=== PATIENT | male | born 1995 | race Caucasian/White ===

== ENCOUNTER 2020-05-03 13:33 | Emergency (ER) | payer BC, SELFPAY ==
[2020-05-03 13:41] VITALS: BP 128/83; PULSE 118; RESP 18; O2SAT 98
--- NOTE | 2020-05-03 13:48 | ED.GENADUL_ITS ---
Discharge Plan Disposition Patient Disposition: HOME Condition: Stable Discharge Details Clinical Impression: Strain of thoracic back region Primary Care Provider: [place],Local ED Provider: Carina Lewis Home Meds and New Rx's Prescriptions: No Action No Known Home Meds RF: 0 Discharge Instructions Instructions: Muscle Strain (ED), Thoracic Back Strain (ED) Additional Instructions: Alternate ice and heat to the affected area(s) several times daily for 20 minutes at a time. Alternate tylenol and motrin as needed and directed for pain. You can also take [id number] Lidoderm patch as needed and directed for pain. Follow up with your primary care doctor in 1 week as needed. Return to the emergency department with any worsening or new concerning symptoms. Discharge Data Discharge Date/Time-TO BE ENTERED AT DEPARTURE: 05/03/20 15:25 Discharge Physician: Carina Lewis Medical Decision Making 25-year-old female presents with right lateral lower back pain for the past 2 weeks after lifting an approximate 400 pound piece of [place]. He presents with concern for pneumothorax as he had similar symptoms with a previous traumatic pneumothorax after a fall a few years ago. His vitals are within normal limits. He denies any complaint of shortness of breath. He has a localized area of tenderness to his right posterolateral inferior ribs. There is no evidence of trauma or cellulitis. His lungs are clear. Clinically appears more consistent likely with a muscle strain or spasm rather than pneumothorax. Will obtain a chest x-ray, give a dose of ibuprofen and place Lidoderm patch and reassess. Chest x-ray negative. Patient feels much better after meds. Given thoracic strain instructions. Advised on pain control. Advised to follow up with the primary care doctor for re-evaluation. Usual and customary return precautions given prior to discharge. Medical Records Medical records reviewed: Yes I reviewed the patient's medical records. Imaging Data Radiologic Study: Radiologist's impression: XR Chest, 2 Views Exam date and time: 05/03/2020 2:06 PM Age: 25 years old Clinical indication: Other: R lower scapular pain, h/o ptx, R/O ptx TECHNIQUE: Imaging protocol: XR of the chest Views: 2 views. COMPARISON: No relevant prior studies available. FINDINGS: Lungs: Nonspecific hyperinflation. No focal lung consolidation. No focal nodular features. Pleural space: No pleural effusion. No pneumothorax. Heart/Mediastinum: Unremarkable. No cardiomegaly. Bones/joints: Unremarkable. IMPRESSION: 1. Nonspecific hyperinflation. 2. No lung infiltrates or consolidation. 3. No pneumothorax or pleural fluid accumulation. HPI General Mode of arrival: ambulatory . Date/Time Provider Initiated Documentation: 05/03/20 13:39 . Limitations to Documentation: no limitations . Information obtained by: patient . HPI Narrative: Patient is a 25-year-old male with a history of traumatic pneumothorax due to a fall a few years ago presents with right lateral lower rib pain for the past 2 weeks after carrying a heavy piece of [place]. Patient states he was carrying an approximate 400 pound piece of [place] 2 weeks ago when a few hours later he developed right lateral lower rib and back pain. He states the pain hurts with movement and to touch and when taking a deep breath. He denies any complaint of shortness of breath. He denies any fever, cough, anterior chest pain, leg pain or swelling, recent travel, recent sick contacts. He has not taken any medication for pain. Related Data Home Medications Medication Instructions Recorded Confirmed Unknown [No Known Home Meds] 05/03/20 05/03/20 Allergies Allergy/AdvReac Type Severity Reaction Status Date / Time No Known Allergies Allergy Unverified 05/03/20 13:42 General Stated Complaint: SOB BYRON: 3 Review of Systems All systems reviewed & are unremarkable except as noted in HPI and below Constitutional Constitutional: Reports as per HPI, Denies chills and Denies fever(s) Eyes Eyes: Denies blurry vision ENT Ears, Nose, Mouth, and Throat: Denies dizziness, Denies sore throat and Denies throat swelling Cardiovascular Cardiovascular: Denies chest pain and Denies dyspnea Respiratory Respiratory: Denies cough and Denies dyspnea Gastrointestinal Gastrointestinal: Denies abdominal pain, Denies diarrhea and Denies vomiting Genitourinary Genitourinary: Denies hematuria and Denies dysuria Musculoskeletal Musculoskeletal: Reports back pain, Denies numbness and Reports other (Right rib and back pain) Integumentary/Breasts Skin/Breast: Denies lesions and Denies rash Neurologic Neurologic: Denies dizziness, Denies localized weakness and Denies numbness Allergic/Immunologic Allergic/Immunologic: Denies throat swelling PENDING SALE TO [facility] Medical History (Updated 05/03/20 @ 21:34 by Carina Lewis DO) Pneumothorax Social History Smoking/Tobacco Use Status: Current every day Tobacco Type: cigarettes Tobacco: How many years used: 8 Substance use type: does not use Do you feel safe at home: Yes Do you feel safe in your relationship?: Yes Exam Const General: cooperative, healthy appearing and no acute distress HENMT Head: normal to inspection Face and sinus: normal facial exam Eyes General: appearance normal, both eyes and all related structures Pupils: PERRL EOM: EOM intact bilaterally Neck Neck: normal visual inspection and No submandibular swelling Lymphatic: no lymphadenopathy noted Chest Chest: normal inspection of the chest and no tenderness Resp Effort & Inspection: normal respiratory effort and able to speak in complete sentences Auscultation: clear to auscultation bilaterally Cardio Rate: regular rate Rhythm: regular rhythm GI Inspection: normal to inspection Palpation: soft, not firm, not rigid and nontender Auscultation: normal bowel sounds Male General Exam: Yes normal external exam Back/Spine/Pelvis Thoracic/Lumbar Spine: thoracic and lumbar spine normal to inspection Pelvis: no pain with anterior-posterior compression Back/spine/pelvis image: 1. Localized area of tenderness noted inferior to the scapula lateral aspect. No erythema, edema, crepitus, step-off, rash or ecchymosis. Skin General skin exam: no rashes or lesions noted Neuro General: patient alert, patient awake and patient oriented x3 Cognition: normal cognition Speech: speech normal Motor: muscle tone normal throughout Sensory Exam: no sensory deficits noted Extrem General: normal to inspection, full ROM, capillary refill normal, no calf tenderness bilaterally and no edema Psych Appearance: grossly normal Mental Status: mental status grossly normal Speech and Movement: speech and movement normal Affect: normal affect Course Vital Signs Vital signs: Vital Signs Pulse 118 H 05/03/20 13:41 Respiratory Rate 18 05/03/20 13:41 Blood Pressure 128/83 05/03/20 13:41 Pulse Oximetry 98 05/03/20 13:41 Pulse 118 H 05/03/20 13:41 Respiratory Rate 18 05/03/20 13:41 Blood Pressure 128/83 05/03/20 13:41 Blood Pressure Position Sitting 05/03/20 13:41 Pulse Oximetry 98 05/03/20 13:41 Oxygen Delivery Method Room Air 05/03/20 13:41 Oxygen Flow Rate 0 05/03/20 13:41 Pain Level 4 05/03/20 13:41
--- NOTE | 2020-05-03 14:06 | DI.RAD_ITS ---
EXAM: XR CHEST 2V PA LATERAL CLINICAL HISTORY: R lower scapular pain, h/o PTX, r/o PTX TECHNIQUE: 2D digital imaging was performed. COMPARISON: No exams were available for comparison FINDINGS: MEDIASTINUM: Normal. HEART: Normal. PULMONARY VASCULATURE: Normal. LUNGS: Clear. Nonspecific hyperinflation of the lungs. PLEURAL SPACE: No pleural effusion or pneumothorax. BONE:Within normal limits for the patient's age. OTHER FINDINGS:Normal. IMPRESSION: 1. No acute pulmonary findings. 2. Nonspecific hyperinflation of the lungs. DATA REPOSITORY: RADIATION DOSE DELIVERED:
--- NOTE | 2020-05-03 14:14 | DI.VRAD_ITS ---
PROCEDURE INFORMATION: Exam: XR Chest, 2 Views Exam date and time: 05/03/2020 2:06 PM Age: 25 years old Clinical indication: Other: R lower scapular pain, h/o ptx, R/O ptx TECHNIQUE: Imaging protocol: XR of the chest Views: 2 views. COMPARISON: No relevant prior studies available. FINDINGS: Lungs: Nonspecific hyperinflation. No focal lung consolidation. No focal nodular features. Pleural space: No pleural effusion. No pneumothorax. Heart/Mediastinum: Unremarkable. No cardiomegaly. Bones/joints: Unremarkable. IMPRESSION: 1. Nonspecific hyperinflation. 2. No lung infiltrates or consolidation. 3. No pneumothorax or pleural fluid accumulation. Dictated and Authenticated by: Srinivasa Haywood MD. Ordering:DIEGO Lim MD
[2020-05-03] MEDS: Ibuprofen 600 MG TAB PO (14:27)
[2020-05-03] MEDS: Lidocaine 5% Patch 1 PATCH TP (14:30)
[2020-05-03 14:32] VITALS: RESP 16
[2020-05-03 15:21] VITALS: BP 118/80; PULSE 80; RESP 18; TEMP 37.4; O2SAT 98
== END 2020-05-03 15:25 | disposition home or self-care (01) ==
LOC: ER 15:26
PROVIDERS: Emergency Provider Physician Assistant
DX: S29.012A Strain of muscle and tendon of back wall of thorax, initial encounter (principal); X50.0XXA Overexertion from strenuous movement or load, initial encounter; Y99.0 Civilian activity done for income or pay
CPT/HCPCS: 99283; 71046